=== PATIENT | male | born 1990 | race Caucasian/White ===

== ENCOUNTER 2023-10-30 11:07 | Emergency (ER) | payer OTHER ==
[~2023-10-30] VITALS: Ht 180.3 cm; Wt 69.0 kg
[2023-10-30 11:13] VITALS: O2SAT 100
[2023-10-30] MEDS: ACETAMINOPHEN 325MG TABLET PO ONE (13:34)
[2023-10-30] MEDS ORDERED: TRAMADOL 50MG TABLET PO ONE (13:45)
[2023-10-30] MEDS: LIDOCAINE HCL/PF 1% 10 MG/ML 5ML VIAL INFIL ONE ×2 (14:01→14:52)
[2023-10-30] MEDS: BACITRACIN ZINC OINT UDPKT TOP ONE (14:01)
[2023-10-30] MEDS: TRAMADOL 50MG TABLET PO NR (14:11)
[2023-10-30] MEDS ORDERED: IBUP-2029 MT (15:02)
[2023-10-30 15:49] VITALS: BP 128/77; PULSE 73; RESP 18; TEMP 98
== END 2023-10-30 15:51 | disposition home or self-care (01) ==
LOC: ER 11:07
DX: S61.012A Laceration without foreign body of left thumb without damage to nail, initial encounter (principal); W45.8XXA Other foreign body or object entering through skin, initial encounter; Y93.89 Activity, other specified; Y92.89 Other specified places as the place of occurrence of the external cause; Y99.8 Other external cause status
CPT/HCPCS: 99283; 12002; J3490